=== PATIENT | female | born 1945 | race Caucasian/White ===

== ENCOUNTER → 2023-08-27 14:15 | Outpatient (REF) | payer MEDICARE, BC, SELFPAY ==
[2023-08-30 02:53] LABS: CCP Antibody IgG/IgA 4 Units (0-19)
[2023-08-30 14:27] LABS: Rheumatoid Agglutinin Less Than 10 IU (<10 IU)
[2023-08-30 14:27] LABS: Lyme Antibody Screen, EIA Negative (Negative)
== END ==
LOC: REG 14:15
PROVIDERS: ATTENDING PHYSICIAN Student in an Organized Health Care Education/Training Program
DX: M25.50 Pain in unspecified joint (principal)
CPT/HCPCS: 36415; 86200; 86430; 86618

== ENCOUNTER → 2023-10-18 13:12 | Outpatient (REF) | payer MEDICARE, BC, SELFPAY | LOC: WDC 13:12 | PROVIDERS: ATTENDING PHYSICIAN Student in an Organized Health Care Education/Training Program | DX: M81.0 Age-related osteoporosis without current pathological fracture (principal); Z12.31 Encounter for screening mammogram for malignant neoplasm of breast | CPT/HCPCS: 77063; 77067; 77080 ==

== ENCOUNTER → 2023-10-24 13:53 | Outpatient (REF) | payer MEDICARE, BC, SELFPAY ==
[2023-10-24 15:45] LABS: Erythrocyte Sed Rate 8 mm/hour (0-20)
[2023-10-24 15:53] LABS: C-Reactive Protein < 5.00 mg/L (0.0-10.00)
[2023-10-24 16:23] LABS: TSH Reflex To Free T4 0.25 uIU/ml (0.47-4.68)
[2023-10-24 16:53] LABS: Free T4 1.74 ng/dl (0.78-2.19)
[2023-10-26 21:16] LABS: ANA, IgG Reflex to HEp-2 Detected (None Detected)
[2023-10-29 07:21] LABS: ANA, HEp-2, IgG Detected (<1:80)
[2023-10-29 07:23] LABS: ANA Pattern Speckled
== END ==
LOC: REG 13:53
PROVIDERS: ATTENDING PHYSICIAN Student in an Organized Health Care Education/Training Program
DX: E03.9 Hypothyroidism, unspecified (principal); M25.50 Pain in unspecified joint
CPT/HCPCS: 36415; 84439; 84443; 85652; 86038; 86039; 86140

== ENCOUNTER → 2023-12-26 13:23 | Outpatient (REF) | payer MEDICARE, BC, SELFPAY ==
[2023-12-26 16:05] LABS: TSH Reflex To Free T4 0.92 uIU/ml (0.47-4.68)
== END ==
LOC: REG 13:23
PROVIDERS: ATTENDING PHYSICIAN Student in an Organized Health Care Education/Training Program
DX: E03.9 Hypothyroidism, unspecified (principal)
CPT/HCPCS: 36415; 84443

== ENCOUNTER → 2024-08-06 13:32 | Outpatient (REF) | payer MEDICARE, SELFPAY ==
[2024-08-06 14:27] LABS: Urine Albumin Negative (Neg - Trace); Urine Bilirubin Negative (Negative); Urine Character Clear (Clear); Urine Color Yellow; Urine Glucose Negative (Negative); Urine Ketone Negative (Negative); Urine Leukocyte Negative (Negative); Urine Nitrite Negative (Negative); Urine Occult Blood Negative (Negative); Urine Urobilinogen Negative (Neg - 1+); Urine pH 6.5 (5.0-9.0)
== END ==
LOC: CLAB 13:32
DX: R35.0 Frequency of micturition (principal)
CPT/HCPCS: 81003; 87086

== ENCOUNTER → 2024-09-25 09:45 | Outpatient (REF) | payer MEDICARE, BC, SELFPAY ==
[2024-09-25 10:22] LABS: % Basophils 0.4 % (0-2); % Immature Granulocytes 0.2 % (0-0.5); % Lymphocytes 30.6 % (20.5-51.1); % Monocytes 8.5 % (1.7-9.3); % Neutrophils 60.3 % (42.2-75.2); Absolute Lymphocytes 1.6 10^3/uL (1.2-3.4); Absolute Monocytes 0.5 10^3/uL (0.1-0.6); Absolute Neutrophils 3.2 10^3/uL (1.4-6.5); Hematocrit 39.7 % (37.0-47.0); Hemoglobin 13.2 g/dL (12.0-16.0); Mean Corp Hgb Conc. 33.2 g/dL (33.0-37.0); Mean Corpuscular Hgb 30.5 pg (27.0-31.0); Mean Corpuscular Volume 91.7 fL (81.0-99.0); Mean Platelet Volume 11.5 fL (7.4-10.4); Nucleated Red Blood Cells % 0 %; Platelet Count 226 10^3/uL (130-400); Red Blood Cell Count 4.33 10^6/uL (4.20-5.40); Red Cell Dist. Width 14.1 % (11.5-14.5); White Blood Cell Count 5.3 10^3/uL (4.8-10.8)
[2024-09-25 11:43] LABS: ALT (SGPT) 20 U/L (0-35); AST (SGOT) 24 U/L (14-36); Albumin 4.5 g/dl (3.5-5.0); Alkaline Phosphatase 87 U/L (38-126); Blood Urea Nitrogen 14 mg/dl (7-17); Calcium 9.7 mg/dl (8.4-10.2); Carbon Dioxide 29 mmol/L (22-30); Chloride 106 mmol/L (98-107); Glucose 84 mg/dl (70-99); Potassium 4.4 mmol/L (3.5-5.1); Sodium 142 mmol/L (135-145); Total Protein 7.8 g/dl (6.3-8.2); eGFR > 60.00
[2024-09-25 11:51] LABS: TSH 9.04 uIU/ml (0.47-4.68)
[2024-09-25 14:50] LABS: Erythrocyte Sed Rate 7 mm/hour (0-20)
== END ==
LOC: REG 09:45
PROVIDERS: FAMILY PHYSICIAN Student in an Organized Health Care Education/Training Program
DX: R35.0 Frequency of micturition (principal); U07.1 COVID-19
CPT/HCPCS: 36415; 80053; 84443; 85025; 85652

== ENCOUNTER → 2024-11-14 13:17 | Outpatient (REF) | payer MEDICARE, BC, SELFPAY ==
[2024-11-14 15:05] LABS: TSH Reflex To Free T4 2.84 uIU/ml (0.47-4.68)
== END ==
LOC: REG 13:17
PROVIDERS: ATTENDING PHYSICIAN Student in an Organized Health Care Education/Training Program
DX: E03.9 Hypothyroidism, unspecified (principal)
CPT/HCPCS: 36415; 84443

== ENCOUNTER → 2025-02-17 13:36 | Outpatient (REF) | payer MEDICARE, BC, SELFPAY | LOC: WDC 13:36 | PROVIDERS: ATTENDING PHYSICIAN Student in an Organized Health Care Education/Training Program | DX: Z12.31 Encounter for screening mammogram for malignant neoplasm of breast (principal) | CPT/HCPCS: 77063; 77067 ==